=== PATIENT | female | born 1940 | race Native Hawaiian/Other Pacific Islander ===

== ENCOUNTER 2016-04-20 16:18 | Observation (INO) | payer OTHER ==
[~2016-04-20] VITALS: Ht 170.2 cm; Wt 100.7 kg
[2016-04-20 17:18] LABS: PLATELET COUNT 258 K/uL (152-353)
[2016-04-20 17:34] LABS: POTASSIUM 3.9 mmol/L (3.6-5.2); SODIUM 134 mmol/L (136-145)
[2016-04-20 17:42] VITALS: BP 127/52; TEMP 98; Ht 170.2 cm; Wt 100.7 kg
[2016-04-20] MEDS ORDERED: NEXIUM40 M1 PO (17:55)
[2016-04-20] MEDS ORDERED: NEURONTIN800 MG PO (17:56)
[2016-04-20] MEDS ORDERED: BENICAR HCT1 TA2 PO (17:56)
[2016-04-20] MEDS ORDERED: LORA0.5T17 PO (17:57)
[2016-04-20] MEDS ORDERED: KLOR-CON 1010 MEQ PO (17:57)
[2016-04-20] MEDS ORDERED: CENTRUM SILVER1 TAB PO (17:58)
[2016-04-20] MEDS ORDERED: DULO60CA2 PO (17:59)
[2016-04-20] MEDS ORDERED: LIPITOR40 MG PO (18:00)
[2016-04-20] MEDS ORDERED: LEVO0.0723 PO (18:00)
[2016-04-20] MEDS ORDERED: CELEBREX200 MG PO (18:01)
[2016-04-20] MEDS ORDERED: CARV25TA PO (18:01)
[2016-04-20] MEDS ORDERED: LANTUS100 MG/ML SC ×2 (18:04→18:05)
[2016-04-20 20:47] VITALS: BP 107/72; TEMP 97.9
[2016-04-20 23:56] VITALS: BP 132/61; TEMP 97.9
[2016-04-21 04:00] VITALS: BP 138/87; TEMP 97.4
[2016-04-21 06:12] LABS: PLATELET COUNT 205 K/uL (152-353)
[2016-04-21 06:24] LABS: POTASSIUM 3.7 mmol/L (3.6-5.2); SODIUM 138 mmol/L (136-145)
[2016-04-21 07:46] VITALS: BP 183/89; TEMP 97.8
--- NOTE | 2016-04-21 10:55 | NUR ---
PHYSICAL THERAPY CAME TO SEE PATIENT AT THIS TIME. PHYSICAL THERAPY RECOMMENDING PT TO SEE ORTHOPEDIC PHYSICIAN FOR TREATMENT.
[2016-04-21 11:55] VITALS: BP 145/52; TEMP 97.9
--- NOTE | 2016-04-21 13:50 | NUR ---
PT RECEIVED DISCHARGE ORDERS AND VERBALIZED UNDERSTANDING. PT RECEIVED INSULIN AND HOME MEDICATIONS. PT INSTRUCTED TO CALL DR. MARIN'S OFFICE FOR FOLLOW UP DUE TO HER OFFICE BEING CLOSED FOR LUNCH AND TO FOLLOW UP IN 3-5 DAYS. PT VERBALIZED UNDERSTANDING. PT'S IV REMOVED WITH CATHETER TIP INTACT. NO REDNESS OR SWELLING NOTED. PT TOLERATED WELL. PT TRANSFERRED VIA WHEELCHAIR TO CAR. PT DISCHARGED AT THIS TIME.
== END 2016-04-21 13:55 | disposition home or self-care (01) ==
LOC: MED/SURG 16:18
PROVIDERS: ADMIT Family Medicine
DX: J10.08 Influenza due to other identified influenza virus with other specified pneumonia (principal); M25.571 Pain in right ankle and joints of right foot; R73.9 Hyperglycemia, unspecified
CPT/HCPCS: 36415; 80053; 82805; 82948; 83735; 85027; 87040; 87070; 87205; 93005; 94640; 94664; 94668; 94760; 96365; 96366; 96367; 96372; 99220; G0378; G0379

== ENCOUNTER 2016-08-04 14:57 | Outpatient (CLI) | payer OTHER ==
[~2016-08-04 14:57] MED LIST: BENICAR HCT1 TA2 PO; CARV25TA PO; CELEBREX200 MG PO; CENTRUM SILVER1 TAB PO; DULO60CA2 PO; KLOR-CON 1010 MEQ PO; LANTUS100 MG/ML SC; LEVO0.0723 PO; LIPITOR40 MG PO; LORA0.5T17 PO; NEURONTIN800 MG PO; NEXIUM40 M1 PO
== END 2016-08-04 22:41 | disposition home or self-care (01) ==
LOC: MAMMO 14:57
DX: Z12.31 Encounter for screening mammogram for malignant neoplasm of breast (principal)
CPT/HCPCS: G0202-TC

== ENCOUNTER 2016-09-22 07:54 | Outpatient (CLI) | payer OTHER ==
[~2016-09-22] VITALS: Ht 165.1 cm; Wt 72.6 kg
== END 2016-09-22 10:30 | disposition home or self-care (01) ==
LOC: NM 07:54
DX: Z01.818 Encounter for other preprocedural examination (principal)
CPT/HCPCS: A9500; J2785

== ENCOUNTER 2016-11-16 13:24 | Outpatient (CLI) | payer OTHER | END 2016-11-16 19:25 | disposition home or self-care (01) | LOC: RAD 13:24 | DX: M81.0 Age-related osteoporosis without current pathological fracture (principal) ==

== ENCOUNTER 2016-11-27 11:43 | Outpatient (CLI) | payer OTHER | END 2016-11-27 12:45 | disposition home or self-care (01) | LOC: RAD 11:43 | DX: M19.041 Primary osteoarthritis, right hand (principal); M19.042 Primary osteoarthritis, left hand ==

== ENCOUNTER 2017-01-05 09:00 | Outpatient (CLI) | payer OTHER ==
[2017-01-05 09:53] LABS: POTASSIUM 4.1 mmol/L (3.6-5.2); SODIUM 141 mmol/L (136-145)
[2017-05-03] MEDS ORDERED: MINOCYCLINE50 MG OR (15:30)
== END 2017-01-05 19:04 | disposition home or self-care (01) ==
LOC: LABW 09:00
PROVIDERS: Internal Medicine Cardiovascular Disease
DX: I25.89 Other forms of chronic ischemic heart disease (principal); I50.9 Heart failure, unspecified
CPT/HCPCS: 36415; 80048; 83880

== ENCOUNTER 2017-01-12 10:02 | Outpatient (CLI) | payer OTHER ==
[2017-05-03] MEDS ORDERED: MINOCYCLINE50 MG OR (15:30)
== END 2017-01-12 11:05 | disposition home or self-care (01) ==
LOC: RESP 10:02
DX: R06.02 Shortness of breath (principal)
CPT/HCPCS: 93306

== ENCOUNTER 2017-02-25 13:05 | Outpatient (CLI) | payer OTHER ==
[2017-05-03] MEDS ORDERED: MINOCYCLINE50 MG OR (15:30)
== END 2017-02-25 19:08 | disposition home or self-care (01) ==
LOC: RESP 13:05
DX: R06.02 Shortness of breath (principal)
CPT/HCPCS: 94640; 94664

== ENCOUNTER 2017-03-10 12:06 | Outpatient (CLI) | payer OTHER ==
[~2017-03-10] VITALS: Ht 170.2 cm; Wt 103.9 kg
[2017-03-10 13:16] LABS: PLATELET COUNT 202 K/uL (152-353)
[2017-03-10 13:46] LABS: POTASSIUM 4.6 mmol/L (3.6-5.2); SODIUM 140 mmol/L (136-145)
[2017-05-03] MEDS ORDERED: MINOCYCLINE50 MG OR (15:30)
== END 2017-03-11 00:15 | disposition home or self-care (01) ==
LOC: INF 12:06
PROVIDERS: Family Medicine
PROC: 30233N1 Transfusion of Nonautologous Red Blood Cells into Peripheral Vein, Percutaneous Approach (ICD-10-PCS; principal; 2017-03-10)
DX: E86.0 Dehydration (principal); R06.02 Shortness of breath; D64.89 Other specified anemias; R79.89 Other specified abnormal findings of blood chemistry
CPT/HCPCS: 36415; 36430; 36591; 36600; 80053; 82728; 82805; 83540; 83550; 83880; 85014; 85018; 85027; 86850; 86900; 86901; 86922; 96360; 96361; 96375; J1940; P9016

== ENCOUNTER 2017-03-16 07:08 | Outpatient (CLI) | payer OTHER ==
[2017-03-16 07:54] LABS: POTASSIUM 3.9 mmol/L (3.6-5.2); SODIUM 141 mmol/L (136-145)
[2017-05-03] MEDS ORDERED: MINOCYCLINE50 MG OR (15:30)
== END 2017-03-16 08:10 | disposition home or self-care (01) ==
LOC: LABW 07:08
PROVIDERS: Internal Medicine Cardiovascular Disease
DX: I50.9 Heart failure, unspecified (principal)
CPT/HCPCS: 36415; 80048

== ENCOUNTER 2017-04-30 17:47 | Outpatient (CLI) | payer OTHER ==
[2017-04-30 18:32] LABS: POTASSIUM 3.7 mmol/L (3.6-5.2)
== END 2017-04-30 19:35 | disposition home or self-care (01) ==
LOC: LAB 17:47
PROVIDERS: Family Medicine
DX: R60.0 Localized edema (principal)
CPT/HCPCS: 80053

== ENCOUNTER 2017-05-03 12:45 | Observation (INO) | payer OTHER ==
[~2017-05-03] VITALS: Ht 152.4 cm; Wt 97.5 kg
[2017-05-03 13:51] LABS: PLATELET COUNT 252 K/uL (152-353)
[2017-05-03 14:09] LABS: POTASSIUM 3.7 mmol/L (3.6-5.2)
[2017-05-03 14:11] VITALS: BP 156/76; TEMP 98; Ht 152.4 cm; Wt 97.5 kg
[2017-05-03] MEDS ORDERED: TEMA30CA18 PO (15:25)
[2017-05-03] MEDS ORDERED: KP FOLIC ACID1 MG PO (15:26)
[2017-05-03] MEDS ORDERED: FURO20TA67 PO (15:26)
[2017-05-03] MEDS ORDERED: TRULICITY0.75 MG/0. SC (15:28)
[2017-05-03] MEDS ORDERED: ALBUTEROL0.083 % IN (15:29)
[2017-05-03] MEDS ORDERED: LYRICA100 MG OR (15:30)
[2017-05-03] MEDS ORDERED: ANORO ELLIPTA 61 AER IN (15:30)
[2017-05-03] MEDS ORDERED: MINOCYCLINE50 MG PO (15:30)
[2017-05-03] MEDS ORDERED: HYDR10TA47 PO (15:31)
[2017-05-03] MEDS ORDERED: ALBU0.5N13 IN (15:32)
[2017-05-03] MEDS ORDERED: FERROUS SULF325 M1 OR (15:33)
[2017-05-03] MEDS ORDERED: CARV12.5 PO (15:33)
[2017-05-03] MEDS ORDERED: GLIP10TA55 PO (15:34)
[2017-05-03 16:00] VITALS: BP 156/77; TEMP 98.8
[2017-05-03 20:00] VITALS: BP 158/78; TEMP 98.4
[2017-05-04] VITALS: BP 189/73; TEMP 98.7
[2017-05-04 04:00] VITALS: BP 180/68; TEMP 98.6
[2017-05-04 05:31] LABS: PLATELET COUNT 260 K/uL (152-353)
[2017-05-04 08:00] VITALS: BP 181/93; TEMP 97.8
[2017-05-04 12:00] VITALS: BP 159/57; TEMP 98.7
[2017-05-04 16:00] VITALS: BP 166/94; TEMP 98.9
[2017-05-04 20:00] VITALS: BP 172/90; TEMP 98.1
[2017-05-05] VITALS: BP 133/64; TEMP 98.1
[2017-05-05 04:00] VITALS: BP 160/85; TEMP 98.2
[2017-05-05 06:13] LABS: PLATELET COUNT 236 K/uL (152-353)
[2017-05-05 06:30] LABS: POTASSIUM 3.4 mmol/L (3.6-5.2)
[2017-05-05 08:00] VITALS: BP 146/71; TEMP 98.2
[2017-05-05 11:59] VITALS: BP 126/54; TEMP 98.5
[2017-05-05 16:00] VITALS: BP 157/76; TEMP 98.6
== END 2017-05-05 19:55 | disposition home or self-care (01) ==
LOC: MED/SURG 12:45
PROVIDERS: ADMIT Family Medicine
DX: J44.1 Chronic obstructive pulmonary disease with (acute) exacerbation (principal); I50.9 Heart failure, unspecified; E87.6 Hypokalemia; E11.9 Type 2 diabetes mellitus without complications
CPT/HCPCS: 36600; 80053; 81000; 82550; 82805; 83735; 83880; 84484; 85027; 93005; 94760; 99220; G0378; G0379; J1940; J2405

== ENCOUNTER 2017-05-12 11:35 | Outpatient (CLI) | payer OTHER ==
[~2017-05-12 11:35] MED LIST changes: +ALBU0.5N13 IN; +ALBUTEROL0.083 % IN; +ANORO ELLIPTA 61 AER IN; +CARV12.5 PO; +FERROUS SULF325 M1 OR; +FURO20TA67 PO; +GLIP10TA55 PO; +HYDR10TA47 PO; +KP FOLIC ACID1 MG PO; +LYRICA100 MG OR; +MINOCYCLINE50 MG PO; +TEMA30CA18 PO; +TRULICITY0.75 MG/0. SC
[2017-05-12 12:11] LABS: POTASSIUM 4.2 mmol/L (3.6-5.2)
== END 2017-05-13 04:41 | disposition home or self-care (01) ==
LOC: LABW 11:35
PROVIDERS: Internal Medicine Cardiovascular Disease
DX: I50.9 Heart failure, unspecified (principal)
CPT/HCPCS: 36415; 80048; 83880

== ENCOUNTER 2017-06-15 12:55 | Outpatient (CLI) | payer OTHER ==
[2017-06-16] MEDS ORDERED: ROBAXIN500 M1 PO (11:34)
[2017-06-16] MEDS ORDERED: Benicar PO (11:39)
[2017-06-16] MEDS ORDERED: POTASSIUM CHLORIDE E PO (11:40)
[2017-06-16] MEDS ORDERED: IRON325 MG PO (11:45)
[2017-06-16] MEDS ORDERED: NEURONTIN800 MG PO (11:47)
[2017-06-16] MEDS ORDERED: BUMETANIDE1 MG PO (11:48)
[2017-06-16] MEDS ORDERED: CELECOXIB200 MG PO (11:50)
[2017-06-16] MEDS ORDERED: LIPITOR40 MG PO (11:52)
[2017-06-16] MEDS ORDERED: NITROGLYCER0.2 MG/H1 TD (11:55)
[2017-06-16] MEDS ORDERED: VITAMIN C500 M5 PO (11:56)
[2017-06-16] MEDS ORDERED: MAGNESIUM250 M1 PO (11:57)
[2017-06-16] MEDS ORDERED: VITAMIN B-12500 MCG PO (11:57)
[2017-06-16] MEDS ORDERED: ONE A DAY WOMEN'S PO (11:58)
== END 2017-06-15 12:57 | disposition short-term general hospital (02) ==
LOC: AMB 12:55
DX: R06.09 Other forms of dyspnea (principal)
CPT/HCPCS: A0425; A0427

== ENCOUNTER 2017-06-15 12:57 | Inpatient (IN) | payer OTHER ==
[~2017-06-15] VITALS: Ht 170.2 cm; Wt 91.7 kg
[2017-06-15] VITALS (17 sets, daily range): BP systolic 135–213; BP diastolic 62–104; TEMP 97.2–98.8; Ht 170.2 cm; Wt 91.7 kg
[2017-06-15 13:42] LABS: PLATELET COUNT 276 K/uL (152-353)
[2017-06-15 13:44] LABS: POTASSIUM 4.1 mmol/L (3.6-5.2)
[2017-06-15 19:42] LABS: PARTIAL THROMBOPLASTIN TIME 22.4 SECONDS (24.5-33.6)
[2017-06-16] VITALS (14 sets, daily range): BP systolic 128–158; BP diastolic 56–732; TEMP 97.4–99.1
[2017-06-16 06:36] LABS: PLATELET COUNT 182 K/uL (152-353)
[2017-06-16 06:54] LABS: POTASSIUM 2.9 mmol/L (3.6-5.2)
[2017-06-16] MEDS ORDERED: ROBAXIN500 M1 PO (11:34)
[2017-06-16] MEDS ORDERED: Benicar PO (11:39)
[2017-06-16] MEDS ORDERED: POTASSIUM CHLORIDE E PO (11:40)
[2017-06-16] MEDS ORDERED: IRON325 MG PO (11:45)
[2017-06-16] MEDS ORDERED: NEURONTIN800 MG PO (11:47)
[2017-06-16] MEDS ORDERED: BUMETANIDE1 MG PO (11:48)
[2017-06-16] MEDS ORDERED: CELECOXIB200 MG PO (11:50)
[2017-06-16] MEDS ORDERED: LIPITOR40 MG PO (11:52)
[2017-06-16] MEDS ORDERED: NITROGLYCER0.2 MG/H1 TD (11:55)
[2017-06-16] MEDS ORDERED: VITAMIN C500 M5 PO (11:56)
[2017-06-16] MEDS ORDERED: MAGNESIUM250 M1 PO (11:57)
[2017-06-16] MEDS ORDERED: VITAMIN B-12500 MCG PO (11:57)
[2017-06-16] MEDS ORDERED: ONE A DAY WOMEN'S PO (11:58)
[2017-06-17] VITALS: BP 123/62; TEMP 98.3
[2017-06-17 04:00] VITALS: BP 138/65; TEMP 98.3
[2017-06-17 05:39] LABS: PLATELET COUNT 180 K/uL (152-353)
[2017-06-17 06:01] LABS: POTASSIUM 2.9 mmol/L (3.6-5.2)
[2017-06-17 08:02] VITALS: BP 145/69; TEMP 98.5
[2017-06-17 13:19] VITALS: BP 102/60; TEMP 98.1
[2017-06-17 18:15] VITALS: BP 130/67; TEMP 98.3
[2017-06-17 20:00] VITALS: BP 150/75; TEMP 98.6
[2017-06-18] VITALS: BP 138/60; TEMP 98.9
[2017-06-18 04:00] VITALS: BP 106/50; TEMP 98.2
[2017-06-18 05:40] LABS: PLATELET COUNT 197 K/uL (152-353)
[2017-06-18 08:22] VITALS: BP 136/71; TEMP 97.9
[2017-06-18 12:04] VITALS: BP 114/51; TEMP 98
== END 2017-06-18 20:15 | disposition home or self-care (01) | DRG 291 ==
LOC: ED 12:57 → ICU 14:30 → MED/SURG 06-16 13:30
PROVIDERS: Family Medicine; ADMIT Family Medicine
DX: I13.0 Hypertensive heart and chronic kidney disease with heart failure and stage 1 through stage 4 chronic kidney disease, or unspecified chronic kidney disease (principal); J96.01 Acute respiratory failure with hypoxia; I50.31 Acute diastolic (congestive) heart failure; J44.1 Chronic obstructive pulmonary disease with (acute) exacerbation; E11.22 Type 2 diabetes mellitus with diabetic chronic kidney disease; N18.3 Chronic kidney disease, stage 3 (moderate); I27.20 Pulmonary hypertension, unspecified; I44.7 Left bundle-branch block, unspecified
CPT/HCPCS: 36415; 36600; 80048; 80053; 82550; 82805; 82948; 82962; 83880; 84484; 85027; 85379; 85610; 85730; 94664; 94760; 96372; 96374; 96375; 99284; J1815; J1940; J2270; Q9963

== ENCOUNTER 2017-07-29 11:10 | Outpatient (CLI) | payer OTHER ==
[~2017-07-29 11:10] MED LIST changes: +BUMETANIDE1 MG PO; +Benicar PO; +CELECOXIB200 MG PO; +IRON325 MG PO; +MAGNESIUM250 M1 PO; +NITROGLYCER0.2 MG/H1 TD; +ONE A DAY WOMEN'S PO; +POTASSIUM CHLORIDE E PO; +ROBAXIN500 M1 PO; +VITAMIN B-12500 MCG PO; +VITAMIN C500 M5 PO
== END 2017-07-29 22:05 | disposition home or self-care (01) ==
LOC: LABW 11:10
DX: K11.7 Disturbances of salivary secretion (principal); M54.16 Radiculopathy, lumbar region
CPT/HCPCS: 36415; 85651; 86140; 86235

== ENCOUNTER 2017-11-25 15:44 | Outpatient (CLI) | payer OTHER ==
[2017-11-25 16:27] LABS: PLATELET COUNT 178 K/uL (152-353)
[2017-11-25 17:03] LABS: POTASSIUM 5.7 mmol/L (3.6-5.2)
== END 2017-11-25 21:26 | disposition home or self-care (01) ==
LOC: LABW 15:44
PROVIDERS: Internal Medicine Rheumatology
DX: H16.223 Keratoconjunctivitis sicca, not specified as Sjogren's, bilateral (principal); K11.7 Disturbances of salivary secretion; Z79.891 Long term (current) use of opiate analgesic; Z79.899 Other long term (current) drug therapy
CPT/HCPCS: 36415; 80053; 85027; 85651; 86140

== ENCOUNTER 2017-12-14 15:09 | Outpatient (CLI) | payer OTHER ==
[2017-12-14 16:01] LABS: POTASSIUM 4.8 mmol/L (3.6-5.2)
== END 2017-12-14 23:34 | disposition home or self-care (01) ==
LOC: LABW 15:09
PROVIDERS: Internal Medicine Cardiovascular Disease
DX: I50.9 Heart failure, unspecified (principal); Z79.899 Other long term (current) drug therapy
CPT/HCPCS: 36415; 80048; 83880

== ENCOUNTER 2018-01-25 12:47 | Outpatient (CLI) | payer OTHER | END 2018-01-25 22:45 | disposition home or self-care (01) | LOC: CT 12:47 | DX: J32.4 Chronic pansinusitis (principal) ==

== ENCOUNTER 2018-09-21 13:45 | Outpatient (CLI) | payer OTHER | END 2018-09-21 23:44 | disposition home or self-care (01) | LOC: RAD 13:45 | DX: G89.29 Other chronic pain (principal); M54.42 Lumbago with sciatica, left side; M54.41 Lumbago with sciatica, right side ==

== ENCOUNTER 2018-10-14 10:19 | Outpatient (CLI) | payer OTHER ==
[~2018-10-14 10:19] MED LIST changes: +BASAGLAR K100 UNIT/M SC; +ENTRESTO 49-511 TAB PO; +FISH OIL1000 M1 PO; +GLUCOS/CHOND1 TA1 PO; +SPIRONOLACT25 MG PO
== END 2018-10-14 20:41 | disposition home or self-care (01) ==
LOC: MRI 10:19
DX: M54.5 Low back pain (principal); G89.29 Other chronic pain; Z98.890 Other specified postprocedural states

== ENCOUNTER 2018-11-30 15:24 | Outpatient (CLI) | payer OTHER ==
[2018-11-30 15:57] LABS: PLATELET COUNT 355 K/uL (152-353)
== END 2018-11-30 23:59 ==
LOC: LABW 15:24
PROVIDERS: Internal Medicine
DX: G62.89 Other specified polyneuropathies (principal); I11.0 Hypertensive heart disease with heart failure; R82.998 Other abnormal findings in urine; R30.0 Dysuria; R39.0 Extravasation of urine
CPT/HCPCS: 36415; 80053; 85027; 87086; 87088

== ENCOUNTER 2019-02-03 12:19 | Outpatient (CLI) | payer OTHER | END 2019-02-03 21:58 | disposition home or self-care (01) | LOC: RAD 12:19 | DX: M25.561 Pain in right knee (principal) ==

== ENCOUNTER 2019-05-03 12:43 | Outpatient (CLI) | payer OTHER ==
[2019-05-03 13:23] LABS: POTASSIUM 4.5 mmol/L (3.6-5.2)
== END 2019-05-03 21:13 | disposition home or self-care (01) ==
LOC: LABW 12:43
PROVIDERS: Internal Medicine Cardiovascular Disease
DX: I42.8 Other cardiomyopathies (principal); Z79.899 Other long term (current) drug therapy
CPT/HCPCS: 36415; 80048; 83880

== ENCOUNTER 2019-05-17 12:04 | Outpatient (CLI) | payer OTHER ==
[2019-05-17 12:52] LABS: PLATELET COUNT 183 K/uL (152-353)
== END 2019-05-17 22:30 | disposition home or self-care (01) ==
LOC: LABW 12:04
PROVIDERS: Orthopaedic Surgery
DX: M35.8 Other specified systemic involvement of connective tissue (principal)
CPT/HCPCS: 36415; 85027; 85651; 86140

== ENCOUNTER 2019-09-27 08:56 | Outpatient (CLI) | payer OTHER ==
[2019-09-27 09:53] LABS: POTASSIUM 4.8 mmol/L (3.6-5.2)
== END 2019-09-27 21:45 | disposition home or self-care (01) ==
LOC: CT 08:56 → LAB 08:56 → CT 09:00
PROVIDERS: Nurse Practitioner Family
DX: R10.84 Generalized abdominal pain (principal); R09.89 Other specified symptoms and signs involving the circulatory and respiratory systems; R06.02 Shortness of breath; Z79.899 Other long term (current) drug therapy
CPT/HCPCS: 36415; 80048; 83880

== ENCOUNTER 2019-11-08 07:54 | Outpatient (CLI) | payer OTHER | END 2019-11-08 19:43 | disposition home or self-care (01) | LOC: LAB 07:54 | DX: U07.1 COVID-19 (principal); R05 Cough; R53.83 Other fatigue; J02.9 Acute pharyngitis, unspecified | CPT/HCPCS: 87635; G2023; U00003 ==

== ENCOUNTER 2019-11-10 11:29 | Emergency (ER) | payer OTHER ==
[~2019-11-10] VITALS: Ht 170.2 cm; Wt 95.3 kg
[2019-11-10 11:37] VITALS: TEMP 98
[2019-11-10 12:43] LABS: PLATELET COUNT 218 K/uL (152-353)
[2019-11-10 13:57] LABS: SODIUM 141 mmol/L (136-145)
[2019-11-10 15:13] VITALS: BP 140/52
== END 2019-11-10 15:13 | disposition home or self-care (01) ==
LOC: ED 11:29
PROVIDERS: Family Medicine
DX: U07.1 COVID-19 (principal); R07.89 Other chest pain
CPT/HCPCS: 80053; 83605; 84484; 85027; 87502; 87651; 93005; 99283

== ENCOUNTER 2020-03-04 14:09 | Outpatient (CLI) | payer OTHER ==
[2020-03-04 14:44] LABS: PLATELET COUNT 173 K/uL (152-353)
[2020-03-04 14:55] LABS: POTASSIUM 4.8 mmol/L (3.6-5.2)
== END 2020-03-04 19:14 | disposition home or self-care (01) ==
LOC: LAB 14:09
PROVIDERS: ATTEND Nurse Practitioner Family
DX: M54.5 Low back pain (principal); E10.9 Type 1 diabetes mellitus without complications; G62.89 Other specified polyneuropathies; I50.9 Heart failure, unspecified; R53.83 Other fatigue; F41.8 Other specified anxiety disorders; K21.9 Gastro-esophageal reflux disease without esophagitis; E78.00 Pure hypercholesterolemia, unspecified; I11.0 Hypertensive heart disease with heart failure
CPT/HCPCS: 80053; 80061; 82306; 82607; 82728; 82746; 83036; 83540; 84439; 84443; 84481; 85027

== ENCOUNTER 2020-06-03 09:47 | Outpatient (CLI) | payer OTHER | END 2020-06-03 19:22 | disposition home or self-care (01) | LOC: MAMMO 09:47 | PROVIDERS: ATTEND Nurse Practitioner Family | DX: Z12.31 Encounter for screening mammogram for malignant neoplasm of breast (principal) ==

== ENCOUNTER 2020-06-05 16:24 | Outpatient (CLI) | payer OTHER | END 2020-06-05 19:49 | disposition home or self-care (01) | LOC: LAB 16:24 | PROVIDERS: ATTEND Internal Medicine | DX: N39.0 Urinary tract infection, site not specified (principal) | CPT/HCPCS: 87086; 87088 ==

== ENCOUNTER 2020-07-17 13:06 | Outpatient (CLI) | payer OTHER | END 2020-07-17 20:29 | disposition home or self-care (01) | LOC: INF 13:06 | PROVIDERS: ATTEND Internal Medicine | DX: Z23 Encounter for immunization (principal) | CPT/HCPCS: 96372 ==

== ENCOUNTER 2020-08-02 13:56 | Outpatient (CLI) | payer OTHER ==
[2020-08-02 14:09] LABS: PLATELET COUNT 204 K/uL (152-353)
[2020-08-02 17:30] LABS: POTASSIUM 6.2 mmol/L (3.6-5.2)
== END 2020-08-02 20:56 | disposition home or self-care (01) ==
LOC: LAB 13:56
PROVIDERS: ATTEND Internal Medicine
DX: R42 Dizziness and giddiness (principal); R53.83 Other fatigue
CPT/HCPCS: 80053; 85027

== ENCOUNTER 2020-08-08 13:08 | Outpatient (CLI) | payer OTHER | END 2020-08-08 20:36 | disposition home or self-care (01) | LOC: INF 13:08 | PROVIDERS: ATTEND Internal Medicine | DX: Z23 Encounter for immunization (principal) | CPT/HCPCS: 96372 ==

== ENCOUNTER 2020-09-30 13:32 | Outpatient (CLI) | payer OTHER | END 2020-09-30 16:00 | disposition home or self-care (01) | LOC: RAD 13:32 | PROVIDERS: ATTEND Nurse Practitioner Family | DX: R05 Cough (principal); R06.02 Shortness of breath ==

== ENCOUNTER 2020-11-20 15:33 | Outpatient (CLI) | payer OTHER ==
[2020-11-20 15:59] LABS: POTASSIUM 4.8 mmol/L (3.6-5.2)
== END 2020-11-20 19:05 | disposition home or self-care (01) ==
LOC: LABW 15:33
PROVIDERS: ATTEND Internal Medicine Cardiovascular Disease
DX: Z79.899 Other long term (current) drug therapy (principal); R06.02 Shortness of breath
CPT/HCPCS: 36415; 80048; 83880

== ENCOUNTER 2020-12-06 09:03 | Outpatient (CLI) | payer OTHER | END 2020-12-06 21:57 | disposition home or self-care (01) | LOC: RESP 09:03 | PROVIDERS: ATTEND Internal Medicine Cardiovascular Disease | DX: I10 Essential (primary) hypertension (principal) ==

== ENCOUNTER 2021-02-03 09:33 | Outpatient (CLI) | payer OTHER | END 2021-02-03 19:03 | disposition home or self-care (01) | LOC: CT 09:33 | PROVIDERS: ATTEND Internal Medicine | DX: N81.89 Other female genital prolapse (principal); R10.30 Lower abdominal pain, unspecified | CPT/HCPCS: 36415; 82565; 84520; Q9963 ==

== ENCOUNTER 2021-05-02 15:14 | Outpatient (CLI) | payer OTHER ==
[2021-05-02 15:39] LABS: PLATELET COUNT 228 K/uL (152-353)
[2021-05-02 15:49] LABS: POTASSIUM 4.8 mmol/L (3.6-5.2)
== END 2021-05-02 20:39 | disposition home or self-care (01) ==
LOC: LAB 15:14
PROVIDERS: ATTEND Internal Medicine
DX: R11.2 Nausea with vomiting, unspecified (principal); R53.83 Other fatigue; E86.0 Dehydration
CPT/HCPCS: 80053; 85027

== ENCOUNTER 2021-06-03 16:58 | Emergency (ER) | payer OTHER ==
[~2021-06-03] VITALS: Ht 170.2 cm; Wt 95.3 kg
[2021-06-03 17:06] VITALS: TEMP 98.2
[2021-06-03 17:44] LABS: PLATELET COUNT 187 K/uL (152-353)
[2021-06-03 17:53] LABS: POTASSIUM 3.7 mmol/L (3.6-5.2)
[2021-06-03 17:58] LABS: PARTIAL THROMBOPLASTIN TIME 23.7 SECONDS (24.5-33.6)
[2021-06-03 20:32] VITALS: BP 161/84
== END 2021-06-03 20:33 | disposition home or self-care (01) ==
LOC: ED 16:58
PROVIDERS: Hospitalist
DX: S09.8XXA Other specified injuries of head, initial encounter (principal); G44.209 Tension-type headache, unspecified, not intractable; N39.0 Urinary tract infection, site not specified; J32.0 Chronic maxillary sinusitis; I50.9 Heart failure, unspecified; W18.39XA Other fall on same level, initial encounter; Y92.89 Other specified places as the place of occurrence of the external cause
CPT/HCPCS: 80053; 80320; 81000; 82550; 83880; 84484; 85027; 85610; 85730; 96365; 96375; 96376; 99284; J0696; J1885; J2270; J2405

== ENCOUNTER 2021-10-30 08:57 | Outpatient (CLI) | payer OTHER | END 2021-10-30 19:04 | disposition home or self-care (01) | LOC: RESP 08:57 | PROVIDERS: ATTEND Internal Medicine Cardiovascular Disease | DX: I10 Essential (primary) hypertension (principal) ==

== ENCOUNTER 2022-06-12 11:44 | Outpatient (CLI) | payer OTHER ==
[2022-06-12 12:23] LABS: POTASSIUM 4.5 mmol/L (3.6-5.2)
== END 2022-06-12 22:53 | disposition home or self-care (01) ==
LOC: LABW 11:44
PROVIDERS: ATTEND Internal Medicine Cardiovascular Disease
DX: Z79.899 Other long term (current) drug therapy (principal); I42.8 Other cardiomyopathies
CPT/HCPCS: 36415; 80048; 83880

== ENCOUNTER 2022-11-19 15:43 | Outpatient (CLI) | payer OTHER ==
[2022-11-19 17:13] LABS: PLATELET COUNT 115 K/uL (152-353)
== END 2022-11-19 19:00 | disposition home or self-care (01) ==
LOC: LABW 15:43
PROVIDERS: ATTEND Nurse Practitioner Family
DX: R55 Syncope and collapse (principal); R06.2 Wheezing
CPT/HCPCS: 36415; 80053; 83735; 85027; 93005

== ENCOUNTER 2022-12-21 12:31 | Outpatient (CLI) | payer OTHER | END 2022-12-21 19:09 | disposition home or self-care (01) | LOC: MRI 12:31 | PROVIDERS: ATTEND Nurse Practitioner | DX: E78.49 Other hyperlipidemia (principal); I50.9 Heart failure, unspecified; G45.9 Transient cerebral ischemic attack, unspecified; E11.9 Type 2 diabetes mellitus without complications; I11.0 Hypertensive heart disease with heart failure ==

== ENCOUNTER 2022-12-23 09:49 | Outpatient (CLI) | payer OTHER | END 2022-12-23 19:16 | disposition home or self-care (01) | LOC: US 09:49 | PROVIDERS: ATTEND Nurse Practitioner | DX: E78.49 Other hyperlipidemia (principal); I50.9 Heart failure, unspecified; G45.9 Transient cerebral ischemic attack, unspecified; E11.9 Type 2 diabetes mellitus without complications ==